=== PATIENT | male | born 1975 | race Hispanic/Latino ===

== ENCOUNTER 2019-02-14 11:04 | Day surgery (SDC) | payer SELFPAY ==
[2019-02-13 15:27] LABS: Absolute Lymphocytes (CBC) 2.5 K/uL (0.7-4.9); Absolute Monocytes 0.5 K/uL (0.1-1.3); Absolute Neutrophil 2.9 K/uL (1.8-8.0); Basophils % 0.8 % (0-1.3); Eosinophils % 6.3 % (0-4.4); Hematocrit 47.6 % (39.6-49.0); Lymphocytes % 39.8 % (15.3-44.8); MPV 8.1 fL (7.6-11.3); Monocytes % 8.3 % (3.3-12.3); RBC Red Blood Cell Count 5.29 M/uL (4.33-5.43)
[2019-02-13 15:51] LABS: Potassium 3.8 mmol/L (3.5-5.1)
--- NOTE | 2019-02-13 16:03 | RAD REPORT ---
EXAM DESCRIPTION: RAD - Chest Pa And Lat (2 Views) - 02/13/2019 3:53 pm CLINICAL HISTORY: Preop chest, pending hernia repair COMPARISON: None. TECHNIQUE: PA and lateral views of the chest were obtained. FINDINGS: The lungs are clear. Heart size is normal and central vasculature is within normal limit s. No pleural effusion or pneumothorax seen. No acute bony finding noted. No aortic abnormality. IMPRESSION: No acute cardiopulmonary process.
--- OUTSIDE RECORDS SUMMARY | 2019-02-14 11:12 | XMS REPORT ---
:1975 [facility] Address [address] [place] [address] Dr. Luis [address] [place] [id number] Care Team Providers Name Role Phone Unavailable Unavailable Unavailable Problems This patient has no known problems. Allergies, Adverse Reactions, Alerts This patient has no known allergies or adverse reactions. Medications This patient has no known medications.
[2019-02-14] MEDS ORDERED: Ringers Lactate 1,000 ML IV ONE (11:20)
[2019-02-14] MEDS ORDERED: FENTANYL CITR 100 MCG/2 ML ONE (12:03)
[2019-02-14] MEDS ORDERED: MIDAZOLAM HCL 2 MG/2 ML INJ ONE (12:03)
[2019-02-14] MEDS ORDERED: PROPOFOL 200 MG/20 ML VIAL IV ONE (12:03)
[2019-02-14] MEDS ORDERED: LIDOCAINE 2% MPF 5 ML VIAL ONE (12:03)
[2019-02-14] MEDS ORDERED: CEFAZOLIN/SWI 1gm 1 GM/10 ML SYR ONE (12:33)
[2019-02-14] MEDS ORDERED: ONDANSETRON 4 MG/2 ML VIAL ONE (13:05)
[2019-02-14] MEDS ORDERED: GLYCOPYRROLATE 0.2 MG/ML SYR ONE (13:06)
[2019-02-14] MEDS: HYDROMORPHONE HCL 1 MG/ML INJ ONE ×3 (13:32→13:55)
[2019-02-14] MEDS ORDERED: NEOSTIGMINE 1 MG/ML -10 ML VIAL ONE (13:40)
[2019-02-14] MEDS ORDERED: KETOROLAC 30 MG/ML INJ ONE (13:40)
--- NOTE | 2019-02-14 13:44 | P.BOP ---
Preoperative diagnosis: incarcerated umbilical hernia Postoperative diagnosis: same, incarcerated omentum Primary procedure: 1. Open repair of incarcerated umbilical hernia Secondary procedure: 2. partial omentectomy Upholsterer Helper: DONNELL MARQUEZ (SALESPERSON [employer]) Estimated blood loss: <20cc Specimen: hernia sac, omentum Findings: as above Anesthesia: General Complications: None Transferred to: Recovery Room Condition: Good
[2019-02-14] MEDS ORDERED: HYDROMORPHONE HCL 1 MG/ML INJ ONE (14:02)
[2019-02-14] MEDS ORDERED: HYDROCODONE/APAP 7.5/325 MG TAB ONE (14:36)
--- NOTE | 2019-02-15 01:36 | OP ---
Date of Procedure: 02/14/2019 Surgeon: Perry Larson MD Bar Host/Hostess: Shirlene Ayoub. Preoperative Diagnosis: Incarcerated umbilical hernia. Postoperative Diagnosis: Incarcerated umbilical hernia with incarcerated omentum that needs to be re moved. Procedures: 1.Open repair of an incarcerated umbilical hernia. 2.Partial omentectomy. Specimen: Hernia sac and omentum. Anesthesia: General plus local. Indications: This is the case of a 43-year-old patient, comes to us with a large umbilical hernia, l arge content into the area. It is incarcerated, cannot be reduced, very tender. So, benefits, alter natives, and risks of repair of an open repair of incarcerated umbilical hernia fully explained, whic h include but are not limited to infection, bleeding, damage to adjacent structures, anesthesia compl ication, recurrence, [place], and even . He also understands this might not relieve any symptoms, he might need more than one surgical intervention. He understands the importance of no heavy lifting a nd losing weight. He signed a consent. He understands he may or may not need a mesh in that area wi th pros and cons fully discussed. Description Of Procedure: The patient was brought to the operating room, placed in supine position. Anesthesia was done without complication. Abdominal area was prepped and draped in sterile fashion. A curvilinear incision was made after time-out was call. The incision was carried down to subcutan eous tissue. We noticed a large amount of omentum out of the abdomen. He has a large pannus, so it was able to accommodate all that omentum and after attempt, we noted we could not reduce back into th e abdominal cavity. So, we proceeded to then do a partial omentectomy by sequentially ligate part of that omentum between Char clamps and then tied each Char clamps and inspected and then sequentiall y reduced back into the abdominal cavity. This allowed me to remove the omentum. The rest was inspe cted, no bleeding, reduced back into the abdominal cavity, and then we were able to remove the hernia sac, clean the fascial edges. The defect was able to be approximated without tension with the use o f #1 Prolene, interrupted [id number] fashion, multiple times. The patient had distended skin fr om chronic distention of this. So, we were able to do subcutaneous closure, reconstruct the umbilica l area, and then closed skin with 3-0 chromic with Steri-Strips on top. Sponge count and instrument counts were correct. The patient tolerated the procedure well. The patient was sent to recovery in stable condition. RAVIN/RODRIGO Voice ID: [id number] Report ID: [id number]
--- NOTE | 2019-02-15 01:36 | DS ---
Date of Discharge: 02/14/2019 Diagnosis: Incarcerated, tender umbilical hernia. Procedures: Open repair of incarcerated, tender umbilical hernia and partial omentectomy. Disposition: Home. Activity: As tolerated. No heavy lifting. Followup: Follow up in my office in 1 week. Call for appointment [phone]. Keep the are dry until we see the patient in the office. Medications: See orders. RAVIN/MODEmigdio Voice ID: [id number] Report ID: [id number]
== END 2019-02-14 15:35 | disposition home or self-care (01) ==
LOC: OR 11:04
PROVIDERS: ATTEND Surgery
PROC: 0WQF0ZZ Repair Abdominal Wall, Open Approach (ICD-10-PCS; principal; 2019-02-14 12:00)
DX: K42.0 Umbilical hernia with obstruction, without gangrene (principal); F17.210 Nicotine dependence, cigarettes, uncomplicated
CPT/HCPCS: 36415; 71046; 80048; 85025; 88302; 88305; J0690; J1170; J2250; J2405; J2704; J2710; J3010

== ENCOUNTER 2020-12-08 12:53 | Emergency (ER) | payer SELFPAY ==
--- OUTSIDE RECORDS SUMMARY | 2020-12-08 12:55 | XMS REPORT | Continuity of Care Document ---
:1975 Author Organization [facility] t Address [address] [place] [address] Dr. Luis [address] [place] [id number] Care Team Providers Name Role Phone Unavailable Unavailable Unavailable Problems This patient has no known problems. Allergies, Adverse Reactions, Alerts This patient has no known allergies or adverse reactions. Medications This patient has no known medications. Procedures This patient has no known procedures. Results This patient has no known results.
[2020-12-08 14:34] LABS: Urine Blood 2+ (NEG); Urine Glucose NEGATIVE (NEG); Urine Protein 2+ (NEG); Urine Specific Gravity >1.030 (1.005-1.030)
[2020-12-08 14:54] LABS: Barbiturates NEGATIVE (NEGATIVE); Benzodiazepines NEGATIVE (NEGATIVE); Cocaine NEGATIVE (NEGATIVE); METHAMPHETAM POSITIVE (NEGATIVE); Methadone NEGATIVE (NEGATIVE); Opiates POSITIVE (NEGATIVE); Phencyclidine NEGATIVE (NEGATIVE); THC Cannibis POSITIVE (NEGATIVE)
--- NOTE | 2020-12-08 15:34 | EDPHYS ---
Physician Documentation [facility] Name: Paul Moon Age: 45 yrs Sex: Male : 1975 Arrival Date: 12/08/2020 Time: 12:54 Bed 2 Private MD: ED Physician Timbo Thomas HPI: 12/08 14:39 This 45 yrs old Male presents to ER via EMS with complaints of Overdose. rn 14:39 The patient presents to the emergency department after a known overdose, a result of rn recreational substance abuse. Severity of symptoms: At their worst the symptoms were severe in the emergency department the symptoms have improved. The patient has not experienced similar symptoms in the past. The patient has not recently seen a physician. EMS reports heroin overdose, found on bathroom floor, minimally responsive, breathing very slowly, given narcan 2mg IM with immediate improvement. Patient admits to using heroin today, denies other drugs. . Historical: - Allergies: 12:59 No Known Allergies; sv - PMHx: 12:59 Unable to obtain; sv - PSHx: 12:59 Unable to obtain; sv - Immunization history:: Adult Immunizations up to date. - Social history:: Smoking status: . - Family history:: not pertinent. - Hospitalizations: : No recent hospitalization is reported. ROS: 14:39 Constitutional: Negative for fever, chills, and weight loss, Eyes: Negative for injury, rn pain, redness, and discharge, Neck: Negative for injury, pain, and swelling, Cardiovascular: Negative for chest pain, palpitations, and edema, Respiratory: Negative for shortness of breath, cough, wheezing, and pleuritic chest pain, Abdomen/GI: Negative for abdominal pain, nausea, vomiting, diarrhea, and constipation, Back: Negative for injury and pain, MS/Extremity: Negative for injury and deformity, Skin: Negative for injury, rash, and discoloration, Neuro: Negative for headache, weakness, numbness, tingling, and seizure. Exam: 14:39 Constitutional: This is a well developed, well nourished patient who is awake, rn somnolent, answering all questions Head/Face: Normocephalic, atraumatic. Eyes: Pupils equal round and reactive to light, extra-ocular motions intact. Lids and lashes normal. Conjunctiva and sclera are non-icteric and not injected. Cornea within normal limits. Periorbital areas with no swelling, redness, or edema. ENT: dry MM Cardiovascular: Regular rate and rhythm. No pulse deficits. Respiratory: No increased work of breathing, no retractions or nasal flaring. Abdomen/GI: soft, non-tender Skin: Warm, dry MS/ Extremity: Pulses equal, no cyanosis. Neurovascular intact. Full, normal range of motion. Equal circumference. Neuro: Awake, somnolent, moves all 4 extremities, answers questions. Vital Signs: 12:55 BP 145 / 98; Pulse 101; Resp 18; Temp 98; Pulse Ox 100% on R/A; sv 14:30 BP 142 / 87; Pulse 94; Resp 14; Pulse Ox 99% on R/A; sv 16:43 BP 138 / 74; Pulse 84; Resp 16; Pulse Ox 97% on R/A; iw MDM: 13:02 Patient medically screened. rn 15:32 Differential diagnosis: heroin overdose. Data reviewed: vital signs, nurses notes, physical laboratory assistant test result(s), and as a result, I will discharge patient. Counseling: I had a detailed discussion with the patient and/or guardian regarding: the historical points, exam findings, and any diagnostic results supporting the discharge/admit diagnosis, lab results, the need for outpatient follow up, to return to the emergency department if symptoms worsen or persist or if there are any questions or concerns that arise at home. Response to treatment: the patient's symptoms have markedly improved after treatment, and as a result, I will discharge patient. Special discussion: I discussed with the patient/guardian in detail that at this point there is no indication for admission to the hospital. It is understood, however, that if the symptoms persist or worsen the patient needs to return immediately for re-evaluation. ED course: Pt now more alert, standing, pacing the room, eating ice, will dc home with ride. Counseled regarding dangers of drug use and told him he almost .. 12/08 12:55 Order name: glucometer results - FOR PT WITH NO ID sv 12/08 12:56 Order name: Glucose, Ancillary(No Armband); Complete Time: 14:55 EDMS 12/08 13:03 Order name: Urine Drug Screen rn 12/08 13:04 Order name: Urine Drug Screen; Complete Time: 14:55 EDMS 12/08 14:28 Order name: Urine Dipstick--Ancillary (enter results) bd 12/08 14:29 Order name: Urine Dipstick-Ancillary; Complete Time: 14:55 EDMI 12/08 13:03 Order name: EKG; Complete Time: 13:04 rn 12/08 13:03 Order name: EKG - Nurse/Tech; Complete Time: 13:43 rn Administered Medications: No medications were administered Disposition: 12/08/20 15:34 Discharged to Home. Impression: Poisoning by and adverse effect of heroin. - Condition is Stable. - Discharge Instructions: Opioid Overdose. - Medication Reconciliation Form, Thank You Letter, Antibiotic Education, Prescription Opioid Use form. - Follow up: Private Physician; When: As needed; Reason: Recheck today's complaints, Re-evaluation by your physician. - Problem is new. - Symptoms have improved. Signatures: Dispatcher [employer] [facility] Wendy Hickey RN RN sv Williams, Irene, RN RN iw Timbo Thomas MD MD wooden furniture polisher: (The following items were deleted from the chart) 16:44 15:34 12/08/2020 15:34 Discharged to Home. Impression: Poisoning by and adverse effect iw of heroin. Condition is Stable. Forms are Medication Reconciliation Form, Thank You Letter, Antibiotic Education, Prescription Opioid Use. Follow up: Private Physician; When: As needed; Reason: Recheck today's complaints, Re-evaluation by your physician. Problem is new. Symptoms have improved. rn
--- NOTE | 2020-12-08 15:34 | ER ---
Nurse's Notes [facility] Name: Paul Moon Age: 45 yrs Sex: Male : 1975 Arrival Date: 12/08/2020 Time: 12:54 Bed 2 Private MD: Diagnosis: Poisoning by and adverse effect of heroin Presentation: 12/08 12:55 Chief complaint: EMS states: found by bystander in his house, breathing 1 bpm with a sv needle in the vicinity. Given Narcan IM to right deltoid. Pt stated that he had used heroin. On arrival to ER, pt breathing with no difficulty. Pt lethargic but able to answer questions. 18G L AC. Coronavirus screen: Client denies travel out of the [place] in the last 14 days. At this time, the client does not indicate any symptoms associated with coronavirus-19. Ebola Screen: No symptoms or risks identified at this time. Initial Sepsis Screen: Does the patient meet any 2 criteria? HR > 90 bpm. No. Patient's initial sepsis screen is negative. Does the patient have a suspected source of infection? No. Patient's initial sepsis screen is negative. Risk Assessment: Do you want to hurt yourself or someone else? Patient reports no desire to harm self or others. Onset of symptoms was December 08, 2020. 12:55 Method Of Arrival: EMS: [facility] 12:55 Acuity: ROBERTO 3 sv Triage Assessment: 12:55 General: Appears in no apparent distress. comfortable, well developed, Behavior is sv cooperative, appropriate for age, drowsy. Pain: Denies pain. Neuro: Level of Consciousness is obeys commands, lethargic, Oriented to person, situation, Moves all extremities. Full function. Respiratory: Airway is patent Respiratory effort is even, unlabored, Respiratory pattern is regular, symmetrical. Derm: Skin is pink, warm \T\ dry. Musculoskeletal: Range of motion: intact in all extremities. Historical: - Allergies: 12:59 No Known Allergies; sv - PMHx: 12:59 Unable to obtain; sv - PSHx: 12:59 Unable to obtain; sv - Immunization history:: Adult Immunizations up to date. - Social history:: Smoking status: . - Family history:: not pertinent. - Hospitalizations: : No recent hospitalization is reported. Screenin:30 Abuse screen: Denies threats or abuse. Denies injuries from another. Nutritional sv screening: No deficits noted. Tuberculosis screening: No symptoms or risk factors identified. Fall Risk None identified. Assessment: 14:06 Reassessment: Patient appears in no apparent distress at this time. No changes from sv previously documented assessment. Patient and/or family updated on plan of care and expected duration. Pain level reassessed. Patient is alert, oriented x 3, equal unlabored respirations, skin warm/dry/pink. 15:12 Reassessment: Patient appears in no apparent distress at this time. No changes from sv previously documented assessment. Patient and/or family updated on plan of care and expected duration. Pain level reassessed. Patient is alert, oriented x 3, equal unlabored respirations, skin warm/dry/pink. 16:05 Reassessment: Pt stated ok to call his mother Shari to get a ride home. Shari called and sv she stated she would take him home. 16:11 Reassessment: Patient appears in no apparent distress at this time. Patient and/or sv family updated on plan of care and expected duration. Pain level reassessed. Patient is alert, oriented x 3, equal unlabored respirations, skin warm/dry/pink. Vital Signs: 12:55 BP 145 / 98; Pulse 101; Resp 18; Temp 98; Pulse Ox 100% on R/A; sv 14:30 BP 142 / 87; Pulse 94; Resp 14; Pulse Ox 99% on R/A; sv 16:43 BP 138 / 74; Pulse 84; Resp 16; Pulse Ox 97% on R/A; iw ED Course: 12:54 Patient arrived in ED. sv 12:54 Wendy Hickey, DEMARIO is Primary Nurse. sv 12:58 Odilon Grewal PA is PHCP. [facility] 12:58 Timbo Thomas MD is Attending Physician. [facility] 12:59 Triage completed. sv 12:59 Arm band placed on. sv 13:00 Patient has correct armband on for positive identification. Bed in low position. Call light in reach. Side rails up X2. pumping station supervisor on. Pulse ox on. NIBP on. 13:00 glucometer results - FOR PT WITH NO ID Sent. sv 13:43 EKG done, by ED staff, reviewed by Timbo Thomas MD. em1 14:38 Urine Dipstick--Ancillary (enter results) Sent. sv 14:38 Urine Drug Screen Sent. sv 16:21 No provider procedures requiring assistance completed. IV discontinued, intact, sv bleeding controlled, No redness/swelling at site. Pressure dressing applied. Administered Medications: No medications were administered Outcome: 15:34 Discharge ordered by MD. rn 16:43 Discharged to home via wheelchair, with family. iw 16:43 Condition: good 16:43 Discharge instructions given to patient, Instructed on discharge instructions, follow up and referral plans. Demonstrated understanding of instructions, follow-up care. 16:44 Patient left the ED. iw Signatures: Wendy Hickey RN RN sv Odilon Grewal PA PA jmm Williams, Irene, RN RN iw Timbo Thomas MD MD rn Martinez, Eric em1
[2020-12-08 18:38] VITALS: TEMP 98
[2020-12-08 18:41] VITALS: BP 138/74; O2SAT 97
--- NOTE | 2020-12-09 05:38 | EKG ---
Test Date: 2020-12-08 Test Time: 13:30:04 Assembler [employer] Spider: IBRAHIMA MEASUREMENT RESULTS: Intervals: Rate: 97 AR: 146 QRSD: 86 QT: 370 QTc: 469 Monson: P: 65 AR: 146 QRS: 71 T: 47 INTERPRETIVE STATEMENTS: Normal sinus rhythm Normal ECG Compared to ECG 08/07/2007 18:30:06 Sinus bradycardia no longer present Sinus arrhythmia no longer present Electronically Signed On 12-09-20 05:35:33 SUPERINTENDENT DRILLING by Arden Sanchez
== END 2020-12-08 16:44 | disposition home or self-care (01) ==
LOC: ER 12:53
DX: T40.1X1A Poisoning by heroin, accidental (unintentional), initial encounter (principal)
CPT/HCPCS: 36415; 80307; 81003; 82947; 93005; 99284